=== PATIENT | female | born 2000 | race Caucasian/White ===

== ENCOUNTER 2019-10-20 08:11 | Emergency (ER) | payer OTHER ==
[~2019-10-20] VITALS: Ht 154.9 cm; Wt 81.3 kg
[2019-10-20 08:53] LABS: BASO % 0.5 % (0.0-1.0); EOS # 0.1 10^3/uL (0.0-0.5); EOS % 2.1 % (0.0-3.0); HEMATOCRIT 46.2 % (36.0-47.0); HEMOGLOBIN 15.5 g/dl (12.0-15.5); LYMPH % 30.5 % (24.0-44.0); MEAN CORPUSCULAR HEMOGLOBIN 29.6 pg (27.0-33.0); MEAN CORPUSCULAR HGB CONC 33.5 g/dl (32.0-36.5); MEAN CORPUSCULAR VOLUME 88.2 fl (80.0-96.0); MONO # 0.6 10^3/uL (0.0-0.8); MONO % 9.5 % (0.0-5.0); NEUTROPHILS # 3.7 10^3/uL (1.5-8.5); NEUTROPHILS % 56.8 % (36.0-66.0); PLATELET COUNT, AUTOMATED 253 10^3/uL (150-450); RED BLOOD COUNT 5.24 10^6/uL (4.00-5.40); WHITE BLOOD COUNT 6.5 10^3/uL (4.0-10.0)
[2019-10-20 09:16] LABS: ALBUMIN 3.7 GM/DL (3.2-5.2); ALT/SGPT 84 U/L (12-78); BILIRUBIN,DIRECT < 0.1 MG/DL (0.0-0.2); BILIRUBIN,TOTAL 0.4 MG/DL (0.2-1.0); LIPASE 82 U/L (73-393); TOTAL PROTEIN 7.3 GM/DL (6.4-8.2)
[2019-10-20] MEDS ORDERED: ISOVUE-370 76% 100ML VIAL (Q9967) As Ordered ONE (10:23)
--- NOTE | 2019-10-20 10:41 | REP ---
PELVIC ULTRASOUND: Real-time sonographic evaluation of the pelvis is performed utilizing transabdominal and endovaginal technique. The bladder measures 4.5 x 2.5 x 6.9 cm. Uterus measures 6.7 x 3.7 x 3.2 cm. Endometrial thickness is 4 mm. There is no endometrial fluid collection. The ovaries are normal in size and echotexture, right ovary measuring 2.7 x 1.7 x 2.7 cm and left ovary 2.8 x 1.9 x 2.1 cm. There is no adnexal mass or free fluid. There is no evidence of ovarian torsion, blood flow is seen in each ovary with duplex Doppler evaluation. IMPRESSION: Negative pelvic ultrasound. Electronically Signed by Servando Watkins MD 10/20/2019 03:10 P
[2019-10-20 11:00] VITALS: BP 118/70
--- NOTE | 2019-10-20 11:41 | REP ---
REASON: Right lower quadrant pain. PRIORS: None. CONTRAST: 100 mL Isovue 370. The lung bases are clear. The liver, gallbladder, spleen, pancreas, and adrenals glands and kidneys are within normal limits. The abdominal aorta and para-aortic regions are within normal limits. The bowel loops and their mesenteries are within normal limits. The appendix is well visualized and is within normal limits. There is no free fluid or free air in the abdomen. A few round right lower quadrant lymph nodes are identified. These are non-enlarged and nonspecific. CT PELVIS: The bowel loops and their mesenteries are within normal limits. There is no free fluid or free air. There is no mass or adenopathy. Bone window technique throughout the examination shows the osseous structures to be within normal limits. IMPRESSION: CT findings are within normal limits as described above. Electronically Signed by Nikko Chappell DO 10/20/2019 11:49 A
== END 2019-10-20 11:08 | disposition home or self-care (01) ==
LOC: M ED 08:11
DX: N94.6 Dysmenorrhea, unspecified (principal); J45.909 Unspecified asthma, uncomplicated
CPT/HCPCS: 36415; 74177; 76830; 76856; 80047; 80076; 81001; 83690; 84702; 85025; 93976; 99284; Q9967